=== PATIENT | male | born 1955 | race Caucasian/White ===

== ENCOUNTER → 2020-07-05 09:26 | Outpatient (BNVA) | payer MEDICARE, BC, SELFPAY | PROVIDERS: PCP Family Medicine; Visit Provider Specialist | DX: G31.83 Neurocognitive disorder with Lewy bodies (principal); F02.80 Dementia in other diseases classified elsewhere, unspecified severity, without behavioral disturbance, psychotic disturbance, mood disturbance, and anxiety; G62.9 Polyneuropathy, unspecified; R26.9 Unspecified abnormalities of gait and mobility | CPT/HCPCS: 36415; 82607; 82746; 96116; 99205 ==

== ENCOUNTER 2020-07-05 11:21 | Outpatient (CLI) | payer MEDICARE, BC, SELFPAY ==
[2020-07-05 12:25] LABS: Vitamin B12 1288 pg/mL (232-1245)
[2020-07-05 13:22] LABS: Folate Level > 20.0 ng/mL (4.5-32.2)
== END 2020-07-05 11:22 | disposition home or self-care (01) ==
PROVIDERS: PCP Family Medicine; Visit Provider Specialist
DX: G62.9 Polyneuropathy, unspecified (principal)
CPT/HCPCS: 36415; 82607; 82746

== ENCOUNTER → 2020-07-26 13:51 | Outpatient (BNVA) | payer MEDICARE, BC, SELFPAY | PROVIDERS: PCP Family Medicine; Visit Provider Specialist | DX: G62.9 Polyneuropathy, unspecified (principal); G56.21 Lesion of ulnar nerve, right upper limb; G56.03 Carpal tunnel syndrome, bilateral upper limbs | CPT/HCPCS: 95913 ==

== ENCOUNTER → 2020-10-03 14:47 | Outpatient (BNVA) | payer MEDICARE, BC, SELFPAY | PROVIDERS: PCP Family Medicine; Visit Provider Specialist | DX: G56.03 Carpal tunnel syndrome, bilateral upper limbs (principal); G31.84 Mild cognitive impairment of uncertain or unknown etiology | CPT/HCPCS: 96116; 99214 ==

== ENCOUNTER → 2020-10-04 15:02 | Outpatient (BNVA) | payer MEDICARE, BC, SELFPAY | PROVIDERS: PCP Family Medicine; Visit Provider Podiatrist Foot & Ankle Surgery | DX: M79.671 Pain in right foot (principal); M79.672 Pain in left foot; M21.6X1 Other acquired deformities of right foot; M21.6X2 Other acquired deformities of left foot; G62.9 Polyneuropathy, unspecified | CPT/HCPCS: 73630 ==

== ENCOUNTER 2021-01-10 15:14 | Outpatient (CLI) | payer MEDICARE, BC, SELFPAY | END 2021-01-10 15:15 | disposition home or self-care (01) | LOC: SPT 15:15 | PROVIDERS: PCP Family Medicine; Visit Provider Podiatrist Foot & Ankle Surgery | DX: Z46.89 Encounter for fitting and adjustment of other specified devices (principal) | CPT/HCPCS: 97760; L3030 ==

== ENCOUNTER → 2021-04-03 14:27 | Outpatient (BNVA) | payer MEDICARE, BC, SELFPAY | PROVIDERS: PCP Family Medicine; Visit Provider Specialist | DX: G31.84 Mild cognitive impairment of uncertain or unknown etiology (principal); G62.9 Polyneuropathy, unspecified; G91.9 Hydrocephalus, unspecified | CPT/HCPCS: 99214 ==

== ENCOUNTER 2021-06-29 13:35 | Outpatient (CLI) | payer MEDICARE, BC, SELFPAY ==
--- NOTE | 2021-06-29 13:45 | MR_ITS ---
WS: [id number] MRI BRAIN WITHOUT CONTRAST HISTORY: G91.9 - Hydrocephalus, unspecified COMPARISON: 04/07/2020 TECHNIQUE: Diffusion imaging, multiplanar T1, T2 and FLAIR imaging obtained. No evidence for acute infarct or hemorrhage. Cortez-white matter differentiation is normal. No remote or acute infarcts are volume loss. Diffuse ventriculomegaly. Lateral ventricles are markedly dilated. No transependymal CSF. There is loraine wing and thinning of the corpus callosum. There is also fourth and third ventricle dilatation. No hem orrhage or mass effect. The extent of ventricular dilatation is slightly out of proportion to the jenn unt of cerebral atrophy. Mild cerebellar atrophy with no prior infarct. Dural venous sinuses and venetie of Brody demonstrate no abnormality on this unenhanced studies. Paranasal sinuses: Mucoperiosteal thickening with small air-fluid levels in the maxillary sinuses. Mastoid air cells: Normal. Calvarium and scalp: Intact. MR/MR head wo con* [id number] IMPRESSION: 1. No acute infarct. 2. Marked diffuse ventriculomegaly. Similar to the prior study from 04/07/2020. No transependymal flow of CSF. Consider normal pressure hydrocephalus. No prog ression since 04/07/2020. 3. No prior infarct. 4. Maxillary sinus disease.
== END 2021-06-29 13:36 | disposition home or self-care (01) ==
LOC: RAD 13:36
PROVIDERS: PCP Family Medicine; Visit Provider Specialist
DX: G91.9 Hydrocephalus, unspecified (principal); G93.89 Other specified disorders of brain; J32.0 Chronic maxillary sinusitis
CPT/HCPCS: 70551

== ENCOUNTER → 2021-07-03 12:50 | Outpatient (BNVA) | payer MEDICARE, BC, SELFPAY | PROVIDERS: PCP Family Medicine; Visit Provider Specialist | DX: G93.89 Other specified disorders of brain (principal); G31.84 Mild cognitive impairment of uncertain or unknown etiology; G62.9 Polyneuropathy, unspecified | CPT/HCPCS: 96116; 99214 ==

== ENCOUNTER → 2022-02-06 15:08 | Outpatient (BNVA) | payer MEDICARE, BC, SELFPAY | PROVIDERS: PCP Family Medicine; Visit Provider Specialist | DX: G31.84 Mild cognitive impairment of uncertain or unknown etiology (principal); G91.9 Hydrocephalus, unspecified; R26.89 Other abnormalities of gait and mobility | CPT/HCPCS: 96116; 99214 ==